=== PATIENT | male | born 1960 | race Caucasian/White ===

== ENCOUNTER 2019-05-16 16:50 | Emergency (ER) | payer MEDICARE ==
[~2019-05-16] VITALS: Ht 182.9 cm; Wt 74.4 kg
[2019-05-16] MEDS ORDERED: CLONAZEPAM 0.50.5 M1 PO (17:00)
[2019-05-16] MEDS ORDERED: ROBAXIN500 MG PO (17:01)
[2019-05-16] MEDS ORDERED: IBUPROFEN 600600 M1 PO (17:01)
[2019-05-16 17:25] LABS: ABSOLUTE BASOPHILS 0.1 thou/uL (0.0-0.2); ABSOLUTE EOSINOPHILS 0.1 thou/uL (0.0-0.7); ABSOLUTE MONOCYTES 0.6 thou/uL (0.0-1.2); ABSOLUTE NEUTROPHILS 5.7 thou/uL (1.6-8.1); EOSINOPHILS 1.3 %; HEMATOCRIT 44.1 % (42.0-52.0); HEMOGLOBIN 15.1 gm/dL (14.0-18.0); LYMPHOCYTES 31.3 %; MCHC 34.3 g/dL (28.0-37.0); MCV 93.2 fL (80.0-100.0); MONOCYTES 5.9 %; MPV 6.6 fl. (7.2-11.1); NUCLEATED RBCS 0 /100WBC; PLATELET COUNT* 307 thou/uL (150-400); POLYS 60.5 %; RBC 4.73 mil/uL (4.50-6.00); RDW-CV 13.4 % (10.5-14.5); WBC 9.5 thou/uL (4.0-11.0)
[2019-05-16 17:32] LABS: CALCIUM 8.9 mg/dL (8.5-10.1); POTASSIUM 4.1 mmol/L (3.5-5.1)
[2019-05-16 17:37] LABS: ALBUMIN 3.6 g/dL (3.4-5.0); TOTAL BILIRUBIN 0.3 mg/dL (<0.1-1.0); TOTAL PROTEIN 7.7 g/dL (6.4-8.2)
[2019-05-16 17:41] LABS: URINE BLOOD TRACE (Negative); URINE CLARITY CLEAR; URINE COLOR YELLOW; URINE GLUCOSE-RANDOM NEGATIVE (Negative); URINE KETONES 1+ (Negative); URINE LEUKOCYTES-REFLEX NEGATIVE (Negative); URINE NITRITE-REFLEX NEGATIVE (Negative); URINE PROTEIN NEGATIVE (Negative); URINE SPECIFIC GRAVITY 1.025 (1.005-1.030); URINE UROBILINOGEN 0.2 E.U./dl (0.2-1.0)
[2019-05-16 17:45] LABS: ICTOTEST (BILI CONFIRMATORY) Negative (Negative); URINE BILIRUBIN 1+ (Negative)
[2019-05-16] MEDS ORDERED: TORADOL 10 MG T10 MG PO (19:13)
[2019-05-16] MEDS ORDERED: NORCO 5-325 TA1 EAC1 PO (19:13)
[2019-05-16 19:33] VITALS: BP 172/76
== END 2019-05-16 19:33 | disposition home or self-care (01) ==
LOC: M.ERS 16:50
PROVIDERS: Personal Emergency Response Attendant
DX: R10.9 Unspecified abdominal pain (principal); R30.0 Dysuria; Z87.442 Personal history of urinary calculi